=== PATIENT | female | born 1955 | race Caucasian/White ===

== ENCOUNTER → 2017-01-28 | Day surgery (SDC) | payer OTHER ==
[~2017-01-28] MED LIST: ACETYLCYSTEINE 20% 6,000 MG/30 ML ORAL SOLN VIAL ONE; LACTATED RINGER'S 1000 ML INJ 1,000 ML ONE; MULT-65 PO; OMEP20TA39 PO; PROPOFOL 200 MG/20 ML AMP IV ONE; STERILE WATER FOR INJ 20 ML VIAL ONE; SUCR1TAB PO
--- NOTE | 2017-01-28 12:39 | GIPROC ---
[facility] [address] [facility], [address] EGD PROCEDURE REPORT EXAM DATE: 01/28/2017 PATIENT NAME: Kat Mendez MR #: [id number] BIRTHDATE: 1955 ATTENDING: Chris Bae MD ORDER #: [id number] CONSTRUCTION CARPENTER: Deedee Remy RN STATUS: outpatient INDICATIONS: The patient is a 61 yr old female here for an EGD due to history of Shirley's esophagus PROCEDURE PERFORMED: EGD w/ biopsy MEDICATIONS: None, Per Anesthesia, None, and Per Anesthesia. TOPICAL ANESTHETIC: CONSENT: The patient understands the risks and benefits of the procedure and understands that these risks include, but are not limited to: sedation, allergic reaction, infection, perforation and/or bleeding. Alternative means of evaluation and treatment include, among others: physical exam, x-rays, and/or surgical intervention. The patient elects to proceed with this endoscopic procedure. medical equipment was checked for proper function. Hand hygiene and appropriate measures for infection prevention was taken. After the risks, benefits and alternatives of the procedure were thoroughly explained, Informed consent was verified, confirmed and timeout was successfully executed by the treatment team. The patient was anesthetized with topical anesthesia and the EG-[id number] ([id number] endoscope was introduced through the mouth and advanced to the second portion of the duodenum. Retroflexed views revealed no abnormalities The gastroscope was then slowly withdrawn and removed. ESOPHAGUS: The mucosa of the esophagus appeared normal. Multiple random biopsies were performed. The endoscopy was otherwise normal. STOMACH: A medium sized hiatal hernia was noted. A gastric bypass was found. ADVERSE EVENTS: There were no complications. IMPRESSIONS: 1. The esophagus appeared normal; multiple random biopsies were performed 2. Normal endoscopy otherwise 3. Medium sized hiatal hernia 4. Gastric bypass was found 5. Retroflexed views revealed no abnormalities RECOMMENDATIONS: 1. Await biopsy results. Biopsy results will not be ready for 7-10 days. If you don't hear from us in two weeks, call our office for biopsy results. 2. Follow-up: GI clinic PRN 3. Anti-reflux regimen PATIENT CONDITION: stable DISPOSITION: Home REPEAT EXAM: Return 2 years EGD Chris Bae MD eSigned: Chris Bae MD 01/28/2017 12:39 PM cc: Andree Mckenzie [facility] PATIENT NAME: Kat Mendez MR#: [id number]
== END | disposition home or self-care (01) ==
LOC: ESDC 10:04
PROVIDERS: ATTEND Internal Medicine Gastroenterology
DX: K22.70 Barrett's esophagus without dysplasia (principal); K44.9 Diaphragmatic hernia without obstruction or gangrene
CPT/HCPCS: 00740; 43239; 88305; J3010; J7120